=== PATIENT | female | born 2000 | race Caucasian/White ===

== ENCOUNTER 2024-07-22 05:08 | Emergency (ER) | payer SELFPAY ==
[~2024-07-22] VITALS: Ht 165.1 cm; Wt 61.0 kg
[2024-07-22 05:29] VITALS: O2SAT 97
[2024-07-22] MEDS: OLANZAPINE 10 MG/VIAL IM STA (05:43)
[2024-07-22] MEDS: LORAZEPAM 2MG/ML INJ IM STA (05:43)
[2024-07-22 06:40] LABS: CHLORIDE 114 mEq/L (98-107); POTASSIUM 3.3 mEq/L (3.5-5.1); SODIUM 148 mEq/L (136-145)
[2024-07-22 06:42] LABS: CALCIUM 8.6 mg/dL (8.7-10.4); CARBON DIOXIDE 22 mEq/L (21-32)
[2024-07-22 06:43] LABS: BASOPHILS % 0.5 % (0.0-2.0); EOSINOPHILS % 0.1 % (0.0-5.0); HEMATOCRIT. 35.1 % (36.0-48.0); HEMOGLOBIN. 11.5 g/dL (12.0-16.0); LYMPHOCYTES % 39.3 % (20.0-50.0); MEAN CORPUSCULAR HEMOGLOBIN 29.7 pg (28.0-32.0); MEAN CORPUSCULAR HGB CONC 32.8 g/dL (31.0-37.0); MEAN CORPUSCULAR VOLUME 90.4 fL (81.0-99.0); MONOCYTES % 5.9 % (2.0-8.0); NEUTROPHILS % 54.2 % (40.0-76.0); PLATELET 247 x1000/uL (130-400); RED BLOOD CELL COUNT 3.88 mill/uL (4.2-5.4)
[2024-07-22 06:46] LABS: CREATININE 0.8 mg/dL (0.6-1.0); UREA NITROGEN BLOOD 11 mg/dL (9-23)
[2024-07-22 06:47] LABS: ETHANOL BLOOD 198 mg/dL (<10); GLUCOSE 86 mg/dL (70-105)
[2024-07-22 07:20] LABS: HCG SCREEN NEGATIVE
[2024-07-22 07:36] LABS: CLARITY URINE CLEAR (CLEAR); COLOR URINE YELLOW (YELLOW); GLUCOSE URINE NEGATIVE (NEGATIVE); KETONES URINE NEGATIVE (NEGATIVE); LEUKOCYTE ESTERASE URINE NEGATIVE (NEGATIVE); NITRITE URINE NEGATIVE (NEGATIVE); OCCULT BLOOD URINE NEGATIVE (NEGATIVE); PROTEIN URINE NEGATIVE (NEGATIVE); SPECIFIC GRAVITY URINE 1.006 (1.005-1.030); UROBILINOGEN URINE 0.2 E.U./dL (0.2-1.0)
[2024-07-22 08:05] LABS: *AMPHETAMINES SCREEN URINE NEGATIVE (NEGATIVE); *BARBITURATES SCREEN URINE NEGATIVE (NEGATIVE); *BENZODIAZEPINES SCREEN URINE NEGATIVE (NEGATIVE); *COCAINE SCREEN URINE NEGATIVE (NEGATIVE); CANNABINOID URINE SCREEN PRESUMPTIVE POSITIVE (NEGATIVE); ECSTASY MDMA SCREEN URINE NEGATIVE (NEGATIVE); METHADONE URINE SCREEN NEGATIVE (NEGATIVE); OPIATES URINE SCREEN NEGATIVE (NEGATIVE); PHENCYCLIDINE URINE SCREEN NEGATIVE (NEGATIVE)
[2024-07-23] MEDS: POTASSIUM CHLORIDE 20MEQ/PACKET PO ONE (11:43)
[2024-07-23 12:34] LABS: CARBON DIOXIDE 20 mEq/L (21-32); CHLORIDE 105 mEq/L (98-107); POTASSIUM 3.6 mEq/L (3.5-5.1); SODIUM 140 mEq/L (136-145)
[2024-07-23 12:35] LABS: CALCIUM 9.7 mg/dL (8.7-10.4)
[2024-07-23 12:39] LABS: CREATININE 0.8 mg/dL (0.6-1.0); GLUCOSE 126 mg/dL (70-105)
[2024-07-23 12:40] LABS: UREA NITROGEN BLOOD 15 mg/dL (9-23)
[2024-07-23 12:41] LABS: ACETAMINOPHEN < 2 ug/mL (10-30)
[2024-07-23 12:43] LABS: ETHANOL BLOOD < 10 mg/dL (<10)
[2024-07-23] MEDS: NICOTINE 21MG PATCH TD ONE (15:15)
[2024-07-23] MEDS: ACETAMINOPHEN 325MG TABLET PO ONE (15:18)
[2024-07-23] MEDS: MELATONIN 3MG TABLET PO SCH (23:03)
[2024-07-23] MEDS: DIPHENHYDRAMINE 25MG CAPSULE PO ONE (23:04)
[2024-07-24] MEDS: DIPHENHYDRAMINE 50MG/ML VIAL IM PRN (02:49)
[2024-07-24] MEDS: MELATONIN 3MG TABLET PO SCH ×2 (02:49→12:13)
[2024-07-24] MEDS: DIPHENHYDRAMINE 25MG CAPSULE PO ONE (03:38)
[2024-07-24] MEDS: DIPHENHYDRAMINE 25MG CAPSULE PO STA (10:57)
[2024-07-24] MEDS: QUETIAPINE FUMARATE 25MG TABLET PO STA (14:14)
[2024-07-24] MEDS: ZIPRASIDONE MESYLATE 20MG/VIAL IM ONE (16:30)
[2024-07-24 20:06] VITALS: BP 115/65; PULSE 79; RESP 16; TEMP 36.78072; O2SAT 100
== END 2024-07-24 20:28 | disposition short-term general hospital (02) ==
LOC: ER 05:25 → EDBD 05:25 → ER 20:28
DX: R45.851 Suicidal ideations (principal); R45.1 Restlessness and agitation; Z20.822 Contact with and (suspected) exposure to COVID-19
CPT/HCPCS: 80305; 80048; 81003; 80307; 80329; 80320; 84703; 85025; 36415; 96372; 99291; 87426; J3490; J2060; J1200; Q0163; G0480